=== PATIENT | male | born 1990 | race Caucasian/White ===

== ENCOUNTER 2024-05-12 14:02 | Outpatient (CLI) | payer MEDICAID, SELFPAY ==
--- NOTE | 2024-05-12 14:07 | XR_ITS ---
FINAL REPORT CLINICAL HISTORY: right elbow fx FINDINGS: Right elbow Three views were obtained. The previously identified fracture at the lateral aspect of the capitellum is no longer seen. The joint space is intact. IMPRESSION: Previously identified fracture is no longer seen. Reviewed, Interpreted and Dictated by Fox Katz MD Transcribed by Desirae Macedo Authenticated and [facility]
== END 2024-05-12 23:59 | disposition home or self-care (01) ==
LOC: RAD 14:05
PROVIDERS: PCP Nurse Practitioner Family; Visit Provider Orthopaedic Surgery
DX: M25.521 Pain in right elbow (principal); S42.451A Displaced fracture of lateral condyle of right humerus, initial encounter for closed fracture
CPT/HCPCS: 73080

== ENCOUNTER 2024-06-10 14:43 | Outpatient (CLI) | payer MEDICAID, SELFPAY ==
--- NOTE | 2024-06-10 14:47 | XR_ITS ---
FINAL REPORT CLINICAL HISTORY: right elbow fx unable to completely extend elbow COMPARISON: 05/12/2024 FINDINGS: RIGHT ELBOW 3 views were obtained. There is no evidence of fracture. There is no joint effusion. The joint spaces are intact. There is no soft tissue abnormality. IMPRESSION: No evidence of fracture or joint effusion. Reviewed, Interpreted and Dictated by Fox Katz MD Transcribed by Geraldine Montanez Authenticated and . [facility]
== END 2024-06-10 23:59 | disposition home or self-care (01) ==
LOC: RAD 14:44
PROVIDERS: PCP Nurse Practitioner Family; Visit Provider Orthopaedic Surgery
DX: M25.521 Pain in right elbow (principal); S42.401A Unspecified fracture of lower end of right humerus, initial encounter for closed fracture
CPT/HCPCS: 73080

== ENCOUNTER 2024-08-21 10:00 | Outpatient (RCR) | payer MEDICAID, SELFPAY ==
--- NOTE | 2024-06-25 10:00 | HMH.PTOPEV ---
PT Outpatient Evaluation Rehab PT Outpatient Evaluation Start: 06/25/24 09:06 Freq: Status: Active Protocol: Document 06/25/24 09:07 MARJAN (Rec: 06/25/24 10:00 [email or web address] [id number]) E-signed By Jayy Love, PT Outpatient Therapy Subjective History Subjective History Pt. is a 34 year old male who presents to [facility] Outpatient Physical Therapy Services in [place] for the initial evaluation this date( 06/25/24) w/ c/o chronic and intermittent RUE elbow P!, contractures, and weakness of traumatic onset since beginning of April. Pt. reports LYNETTE was secondary to falling in the parking lot at work resulting in breaking my elbow. Initial diagnostic imaging indicates RUE elbow capitellum fx. However, recent diagnostic imaging indicates completely healed per pt. report. Pt. reports donning hard cast x2 wks. post DOI, then was released to don/doff elbow sling. Pt. reports restrictions were no lifting > 10# nor pushing/pulling. Pt. reports he does not have a return date to MD at this time , but was instructed to RTMD if Physical Therapy did not help. Pt. reports working full duty at [employer] at this time, states, they work with me. Pt. 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 Current medications include Lisinopril and Zoloft. PMH includes anxiety and depression disorders, Herniorrhaphy x 3. New diagnosis of cancer in past 12 No months? Chief Complaint Pain,Spasms,Stiff,Catches/ Locks,Gives out/Unstable, Weakness Symptom Type Ache,Throb,Sharp,Dull,Stabbing Symptoms Relieved By Rest/Positioning,Heat,Ice, Brace/Support Symptoms Aggravated By Standing,Bending/Stooping, Physical Activity,Twisting, Lifting Prior Functional Limitations None Current Functional Limitations Reaching,Lifting,Housework, Driving,Standing,Recreation Activity,Bending/Stooping Symptom Description Intermittent,Activity Dependent Level of pain today (0-10) 0 Pain scale - at its best (0-10) 0 Pain scale - at its worst (0-10) 6 Shoulder/Elbow Eval Shoulder Objective Measurements Elbow Objective Measurements Palpation Tenderness Elbow Palpation Overall Comment grade 4 +TTP Elbow Palpation Finding Tenderness,Spasm,Muscle Guarding tenderness elbow exam standard right tenderness over the lateral epicondyle right elbow exam standard Flexibility Deficits Bicep Muscle Length (R) Severe Tightness Tricep Muscle Length (R) Severe Tightness Elbow ROM Right decreased ROM elbow exam standard right pain with active ROM elbow exam standard right pain with passive ROM elbow exam right standard Elbow Extension Active Range of Motion ( +34 degrees) Elbow Extension Passive Range of Motion +31 (degrees) Elbow Flexion Active Range of Motion ( 131 degrees) Elbow Flexion Passive Range of Motion ( 137 degrees) Elbow Pronation of Forearm Range of 79 Motion (degrees) Elbow Supination of Forearm Range of 79 Motion (degrees) Elbow ROM Limitations Soft Tissue Tightness, Contracture,Bony Restriction, Muscle Tone,Pain Elbow MMT Elbow Flexion Strength Grade 3+ Fair+ Biceps Brachii Strength Grade 3+ Fair+ Brachioradialis Strength Grade 3+ Fair+ Brachialis Strength Grade 3+ Fair+ Brachialis Strength Grade (Flexion) 3+ Fair+ Elbow Extension Strength Grade 3+ Fair+ Triceps Brachii Strength Grade 3+ Fair+ Supination Strength Grade 3+ Fair+ Pronation Strength Grade 3+ Fair+ Elbow Muscle Tone Elbow Extensors Muscle Tone Description Severe Hypertonicity Elbow Flexors Muscle Tone Description Severe Hypertonicity Elbow Special Tests Resistive Tennis Elbow (Cozen's) Test Negative Right Elbow Valgus Stress Test Negative Right Elbow Varus Stress Test Negative Right Accessory Movements Right Proximal Radioulnar Dorsal Emelle (elbow Severely Decreased JAM) Proximal Radioulnar Ventral Emelle (elbow Moderately Decreased JAM) Radiohumeral Dorsal Emelle Movement ( Severely Decreased elbow JAM) Radiohumeral Ventral Emelle Movement ( Moderately Decreased elbow JAM) Ulnohumeral Radial Emelle Movement (elbow Moderately Decreased JAM) Ulnohumeral Ulnar Emelle Movement (elbow Moderately Decreased JAM) Ulnohumeral Ventral Emelle Movement ( Moderately Decreased elbow JAM) Outpatient Therapy Assessment Impairments Problems/Impairmments Palpation Tenderness,Impaired Range of Motion,Impaired Strength,Impaired Endurance, Impaired Transfers,Impaired Driving,Impaired Lifting, Impaired Household Care, Impaired Recreational Activities,Impaired Work Activities,Increased Edema, Subjective C/O Pain,Impaired Self Care/Self Management Prognosis Rehab Potential Good Comment w/ HEP compliancy Clinical Impression Consistent with Diagnosis Yes Consistent with RUE elbow fx. 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 will be able to depress/push off w/ RUE shldr. stand up out of chair Increase Ability to Drive/Ride in Car Yes: operate steering wheel w/ RUE w/o difficulty Restore Ability to Lift Objects to Yes Shoulder Level Restore Ability to Lift Objects Overhead Yes Improve Tolerance to Work Activities Yes: w/o difficulty Improve Quick Dash Score Yes Decrease Subjective C/O Pain Yes: worse:-11/24 Patient to be Ind w/ Advanced HEP Yes Outpatient Therapy Plan of Care Treatment Plan May Include Therapeutic Exercise Including Home Yes Exercise Program Manual Therapy Techniques Yes Neuromuscular Re-education Yes Therapeutic Activities to Return to Yes Previous Functional/Work Level ADL/Self Care Education Yes Dry Needling Yes Thermal Modalities Yes Electrical Stimulation Yes Ultrasound/Phonophoresis Yes Iontophoresis Yes Vasopneumatic Compression Pump Yes Massage Yes Eval/Re-Eval Yes Frequency Times per week 2 Duration Number of Weeks 4-6 Addendums This patient is a candidate for social No or vocational rehab? Patient/Guardian verbally acknowledges Yes understanding of treatment program and consents to further treatment? Patient/Guardian verbally acknowledges Yes understanding of diagnosis, prognosis and goals for treatment? Eval Complexity PT Charges 50630 - Low Complexity PHYSICIAN CERTIFICATION: I certify the specified therapy services for Abad Medina are required, authorized, and reviewed every 30 days.
== END 2024-08-26 15:42 | disposition home or self-care (01) ==
LOC: PT 10:00
PROVIDERS: Visit Provider Physician Assistant Surgical
DX: M25.521 Pain in right elbow (principal); Z98.890 Other specified postprocedural states; S42.401A Unspecified fracture of lower end of right humerus, initial encounter for closed fracture
CPT/HCPCS: 97110; 97140; 97163; 97164; 97530